=== PATIENT | female | born 1950 | race American Indian/Alaskan Native ===

== ENCOUNTER 2016-03-01 10:52 | Emergency (ER) | payer MEDICARE ==
[2016-03-01 11:24] VITALS: BP 145/86
--- NOTE | 2016-03-01 11:41 | Emergency Department Report ---
Chief Complaint: Chest Pain Stated Complaint: CHEST PAIN Time Seen by Provider: 03/01/16 11:41 - HPI History of Present Illness: Patient here reports that she has chest pain to the mid chest area that started this morning. She arrived in the ER via ambulance and she said they gave her some nitroglycerin and sensation throughout ED and her chest pain is gone. She said initially her chest pain was 2 out of 10 and feels sharp. Denies any history of acid reflux. Denies any shortness of breath. Denies any radiation of pain to arm. Patient has a history of asthma with COPD and she is on Dulera twice a day. Denies any history of high blood pressure or heart disease. - ROS Review of Systems: All systems are negative unless stated in HPI above. - Exam Vital Signs: Vital Signs 03/01/16 11:19 Temperature 98.1 F Pulse Rate 52 L Respiratory 12 Rate Blood Pressure 145/86 O2 Sat by Pulse 100 Oximetry Physical Exam: General: This is a 65-year-old female well-nourished well-developed in no acute distress. CV: S1 and S2, bradycardic at 52. Lungs: Clear to auscultate bilaterally. no Rhonchi wheezes or rales. Normal work of breathing MSE screening note: Focused history and physical exam performed. Due to findings the following was ordered:see mdm ED Medical Decision Making - Medical Decision Making Medical decision making: Patient seen by provider in triage area. Appropriate protocol activated and patient to main ED to be seen by physician. ED Disposition for MSE Condition: Stable
[2016-03-01 12:07] LABS: Basophils % (Auto) 0.7 % (0.0-1.8); Eosinophils % (Auto) 1.5 % (0.0-4.3); Hematocrit 38.9 % (30.3-42.9); Hemoglobin 12.9 gm/dl (10.1-14.3); Mean Corpuscular HGB Conc 33 % (30-34); Mean Corpuscular Hemoglobin 31 pg (28-32); Mean Corpuscular Volume 95 fl (79-97); Platelet Count 176 K/mm3 (140-440); Red Blood Count 4.11 M/mm3 (3.65-5.03); Red Cell Distribution Width 13.7 % (13.2-15.2)
[2016-03-01 12:25] LABS: Creatine Kinase MB 1.3 ng/mL (0.0-4.0)
[2016-03-01 12:27] LABS: Anion Gap 15 mmol/L; BUN/Creatinine Ratio 16.66; Blood Urea Nitrogen 15 mg/dL (7-17); Calcium 8.9 mg/dL (8.4-10.2); Carbon Dioxide 27 mmol/L (22-30); Chloride 100.8 mmol/L (98-107); Creatine Kinase 126 units/L (30-135); Glucose 84 mg/dL (65-100); Potassium 4.2 mmol/L (3.6-5.0); Sodium 139 mmol/L (137-145)
--- NOTE | 2016-03-02 11:58 | ED Elopement Review ---
ED Pt Elopement review - Results review Lab results: Laboratory Tests 03/01/16 03/01/16 03/01/16 11:56 11:56 14:24 WBC 6.0 RBC 4.11 Hgb 12.9 Hct 38.9 MCV 95 MCH 31 MCHC 33 RDW 13.7 Plt Count 176 Lymph % (Auto) 35.7 H Cowley % (Auto) 8.7 H Eos % (Auto) 1.5 Baso % (Auto) 0.7 Lymph # 2.1 Cowley # 0.5 Eos # 0.1 Baso # 0.0 Seg Neutrophils % 53.4 Seg Neutrophils # 3.2 Sodium 139 Potassium 4.2 Chloride 100.8 Carbon Dioxide 27 Anion Gap 15 BUN 15 Creatinine 0.9 Estimated GFR > 60 BUN/Creatinine Ratio 16.66 Glucose 84 Calcium 8.9 Total Creatine Kinase 126 CK-MB (CK-2) 1.3 CK-MB (CK-2) Rel Index 1.0 Troponin T < 0.010 < 0.010 03/01/16 17:06 WBC RBC Hgb Hct MCV MCH MCHC RDW Plt Count Lymph % (Auto) Cowley % (Auto) Eos % (Auto) Baso % (Auto) Lymph # Cowley # Eos # Baso # Seg Neutrophils % Seg Neutrophils # Sodium Potassium Chloride Carbon Dioxide Anion Gap BUN Creatinine Estimated GFR BUN/Creatinine Ratio Glucose Calcium Total Creatine Kinase CK-MB (CK-2) CK-MB (CK-2) Rel Index Troponin T < 0.010 - Call Back decision Pt Call Back Decision: No action required
== END 2016-03-01 19:41 | disposition left against medical advice (07) ==
LOC: ED 10:52
DX: R07.9 Chest pain, unspecified (principal); Z53.21 Procedure and treatment not carried out due to patient leaving prior to being seen by health care provider
CPT/HCPCS: 36415; 80048; 82550; 82553; 84484; 85025; 93005; 93010